=== PATIENT | female | born 1970 | race Caucasian/White ===

== ENCOUNTER 2019-06-20 18:28 | Emergency (ER) | payer MEDICARE, OTHER ==
[~2019-06-20] VITALS: Ht 154.9 cm; Wt 104.3 kg
[2019-06-20 19:46] LABS: Hematocrit 25.4 % (33.0-51.0); Hemoglobin 8.6 g/dL (11.5-16.0); Mean Corpuscular HGB 33.3 pg (26.0-34.0); Mean Corpuscular HGB Conc 33.9 g/dL (31.5-36.5); Mean Corpuscular Volume 98 fL (80-100); NRBC ABSOLUTE 0.03 K/mm3 (0.00-0.02); NRBC Auto 0.1 /100 WBC (0.0-0.2); RDW Coefficient Variation 14.8 % (11.7-14.2); RDW Standard Deviation 53.5 fL (35.1-46.3); Red Blood Cell Count 2.58 M/mm3 (3.80-5.20); White Blood Cell Count 29.55 K/mm3 (4.00-11.30)
[2019-06-20 19:52] LABS: Mean Platelet Volume 13.1 fL (9.1-12.4); Platelet Count 42 K/mm3 (150-400)
[2019-06-20 20:05] LABS: Alanine Aminotransfer (ALT/SGP 23 U/L (12-78); Albumin, Blood 3.1 g/dL (3.4-5.0); Albumin/Globulin Ratio 0.7 (0.8-1.8); Alk Phos 77 U/L (50-136); Anion Gap 5 mmol/L (6-16); Aspartate Aminotrans (AST/SGOT 13 U/L (12-37); Bilirubin, Total 0.4 mg/dL (0.1-1.0); Blood Urea Nitrogen 11 mg/dL (8-24); Bun/Creatinine Ratio 18.4 (12.0-20.0); CO2, Blood 25 mmol/L (21-32); Calcium, Blood 8.8 mg/dL (8.5-10.1); Chloride, Blood 106 mmol/L (98-108); Globulin, Blood 4.2 g/dL (2.2-4.0); Glomerular Filtration Rate >60 (60-); Glucose, Blood 190 mg/dL (70-99); Potassium, Blood 3.9 mmol/L (3.5-5.5); Sodium, Blood 136 mmol/L (136-145); Total Protein, Blood 7.3 g/dL (6.4-8.2)
[2019-06-20 20:25] LABS: BASOPHILS PERCENT MAN 0 % (0-2); EOSINOPHILS PERCENT MAN 0 % (0-6); LYMPHOCYTES ABSOLUTE MAN 9.75 K/mm3 (0.84-5.20); LYMPHOCYTES PERCENT MAN 33 % (21-46); MONOCYTES ABSOLUTE MAN 7.38 K/mm3 (0.16-1.47); MONOCYTES PERCENT MAN 25 % (4-13); MYELOCYTE ABSOLUTE MAN 0.29 K/mm3 (0.00-0.00); MYELOCYTE PERCENT MAN 1 % (0-0); NEUTROPHILS ABSOLUTE MAN 0.88 K/mm3 (1.96-9.15); SEG NEUTROPHILS PERCENT MAN 3 % (41-73); TOTAL CELLS COUNTED 100
[2019-06-20 20:27] LABS: OTHER CELL PERCENT MAN 38 % (0-0)
[2019-06-20 20:30] LABS: Source, Urine Clean Catch
[2019-06-20 20:46] LABS: Appearance, Urine Clear (Clear); Bilirubin, Urine Neg (Neg); Blood, Urine 1+ (Neg); Color, Urine Yellow (P-Yellow); Glucose Qualitative, Urine 2+ (Neg); Ketones, Urine Neg (Neg); Leukocyte Esterase, Urine Neg (Neg); Nitrite, Urine Neg (Neg); Protein, Urine Neg (Neg); Urobilinogen, Urine NORM (Normal)
[2019-06-20 20:48] LABS: Red Blood Cells, Urine 0-2 /hpf (0-2); White Blood Cells, Urine 0-2 /hpf (0-5)
[2019-06-20 20:50] LABS: Bacteria Few /hpf; Squamous Epithelial Cells Many /hpf (Few)
[2019-06-20 21:03] LABS: International Normalized Ratio 0.99; Prothrombin Time Results 10.5 Sec (9.7-11.5)
== END 2019-06-20 22:11 | disposition home or self-care (01) ==
LOC: ER 18:28
PROVIDERS: Emergency Medicine; Physician Assistant
DX: C95.00 Acute leukemia of unspecified cell type not having achieved remission (principal); R53.83 Other fatigue; R53.81 Other malaise; F17.200 Nicotine dependence, unspecified, uncomplicated; Z91.030 Bee allergy status
CPT/HCPCS: 36415; 71046; 80053; 81001; 83605; 83735; 84443; 85025; 85610; 86308; 87040; 93005; 93010; 96360; 99284-25; A9270-GY; J7030

== ENCOUNTER → 2019-11-18 | Outpatient (CLI) | payer MEDICARE, OTHER | END | disposition home or self-care (01) | LOC: LAB SHORT 19:34 → LAB 19:34 | PROVIDERS: Physician Assistant | DX: Z01.419 Encounter for gynecological examination (general) (routine) without abnormal findings (principal) | CPT/HCPCS: 87070; 87205; G0123 ==